=== PATIENT | female | born 1950 | race Caucasian/White ===

== ENCOUNTER → 2016-08-13 | Outpatient (CLI) | payer BC, OTHER ==
[~2016-08-13] MED LIST: ALBU1AER9 INH; ASPI325T4 PO; LACTCHW3 PO; LOSA1TAB PO; LSX20 PO; METO25TA3 PO; POTA-335 PO; RED YEAST RICE PO; RIVA1TAB4 PO
--- NOTE | 2016-08-14 08:27 | MAMMOGRAPHY REPORT ---
BILATERAL DIGITAL SCREENING MAMMOGRAM WITH CAD: 08/13/2016 CLINICAL HISTORY: Routine screening. Patient has no complaints. TECHNIQUE: Bilateral CC and MLO views were obtained. Current study was also evaluated with a Comput er Aided Detection (CAD) system. COMPARISON: Comparison is made to exams dated: 08/10/2015 mammogram, 08/08/2014 mammogram, 08/06/2013 mammogram, 08/05/2011 mammogram, 08/01/2010 mammogram, and 08/05/2012 mammogram - [facility]. BREAST COMPOSITION: There are scattered areas of fibroglandular density in both breasts. FINDINGS: The hub of the Port-A-Cath projects over the right breast, 12:00 and 1:00 axes posteriorly . No new suspicious mass, architectural distortion or cluster of microcalcifications is seen. IMPRESSION: ACR BI-RADS CATEGORY 1: NEGATIVE There is no mammographic evidence of malignancy. A 1 year screening mammogram is recommended. The p atient will receive written notification of the results. Approximately 10% of breast cancers are not detected with mammography. A negative mammographic repor t should not delay biopsy if a clinically suggestive mass is present. Elba Castro M.D. ay/:08/13/2016 16:23:57 Clinical Data Specialist: Lorrie BROWN(Rod)(M), [facility] letter sent: Normal 1/2 BI-RADS Code: ACR BI-RADS Category 1: Negative
== END | disposition home or self-care (01) ==
LOC: C.MAMM 09:10
PROVIDERS: ATTEND Internal Medicine
DX: Z12.31 Encounter for screening mammogram for malignant neoplasm of breast (principal)

== ENCOUNTER → 2017-01-14 | Outpatient (CLI) | payer BC ==
[~2017-01-14] MED LIST changes: +OPTIRAY 320 IV PRN
--- NOTE | 2017-01-14 14:55 | DIAGNOSTIC IMAGING REPORT ---
ABD/PELVIS IV AND ORAL CONT CLINICAL HISTORY: 66 years-old Female presenting with non-Hodgkin's lymphoma. TECHNIQUE: Multidetector CT of the abdomen and pelvis was performed after the administration of oral and intravenous contrast. IV contrast: 119 mL of Optiray 320. A dose lowering technique was used consistent with the principles of ALARA (as low as reasonably achievable). COMPARISON: PET/CT from 05/17/2009 and 04/12/2013. CT DOSE (mGy.cm): The estimated cumulative dose is 2173.29 inclusive of the chest CT.. FINDINGS: [employer] Machine Mechanic topogram: Total left hip arthroplasty. Lung bases: Bilateral pleural thickening and pleural nodularity increased from prior exam in 2012. Mosaic attenuation in the lungs could suggest small airways disease. Mild multichamber enlargement of the heart. Liver: Normal morphology. No liver lesion. Patent hepatic artery and portal veins. Hepatic veins not yet opacified. Biliary: No intrahepatic or extrahepatic biliary ductal dilatation. Gallbladder contains gallstones. Pancreas: Mild parenchymal atrophy. Spleen: Normal. Adrenal glands: Normal. Kidneys and ureters: Simple cysts noted in the lateral aspect of the left upper pole. Bilateral extra renal pelvises. Proximal and mid ureters normal. Evaluation of the distal ureters degraded by the presence of the total left hip arthroplasty with resulting streak artifact. Bladder: Circumferential bladder wall thickening. Pelvic organs: Uterus and ovaries grossly normal allowing for extensive streak artifact. Bowel: Normal appendix. No bowel obstruction. Peritoneal cavity: No free fluid or intraperitoneal gas. Lymph nodes: No enlarged lymph nodes in the abdomen or pelvis. Vasculature: Atherosclerosis of the normal caliber abdominal aorta. IVC not yet opacified. Abdominal wall: Small fat-containing of [place] hernia. Musculoskeletal: No evidence of osseous erosion of the ribs subjacent to the pleural disease. Deformity of the posterior left ninth rib suggest prior fracture. Degenerative changes of the spine noted. Left total hip arthroplasty without hardware complication. IMPRESSION: 1. Interval increase in bilateral soft tissue pleural thickening and nodularity concerning for progression of lymphomatous disease. 2. No lymphadenopathy or evidence of disease in the abdomen and pelvis. Electronically signed by: Beka Kang M.D. 01/14/2017 2:54 PM Dictated Date/Time: 01/14/2017 2:46 PM
--- NOTE | 2017-01-14 14:59 | DIAGNOSTIC IMAGING REPORT ---
CHEST CT WITH CONTRAST CT DOSE: 2173.29 mGy.cm HISTORY: NON HODGKINS LYMPHOMA TECHNIQUE: Multiaxial CT images of the chest were performed following the intravenous administration of contrast. A dose lowering technique was utilized adhering to the principles of ALARA. COMPARISON: Chest CTA 11/23/2007. FINDINGS: No pleural effusions. No pneumothorax. Hyperdense nodular pleural thickening, bilaterally. This is is stable to slightly progressed compared to the prior study. Small focal areas of consolidation with bronchiectasis within the lung apices. This favors fibrotic change. There is also a nonspecific 1.3 cm nodular opacity within the right lung apex on image 61. This may also represent a small focus of fibrotic change but is nonspecific. Mosaic attenuation within the lungs consistent with air trapping. The central airways are patent. Cholelithiasis. Soft tissue prominence within the paratracheal location of the mediastinum. This includes a 1.6 x 1.0 cm right paratracheal lymph node which is increased in size. The main pulmonary artery is dilated up to 4.2 cm. The heart is mildly enlarged. IMPRESSION: 1. Stable to slight progression of the hyperdense nodular areas of pleural thickening, bilaterally. This could represent prior posttreatment changes/pleurodesis. 2. Progressive soft tissue prominence within the paratracheal location of the mediastinum which includes a 1.6 x 1.0 cm right paratracheal lymph node which is increased in size. This is nonspecific but could represent recurrent malignancy or posttreatment changes. [address] follow-up is recommended to ensure stability. 3. A 1.3 cm nodular opacity within the right lung apex which favors fibrotic change. However, this also requires [address] follow-up to ensure stability. Electronically signed by: Louis Claudio M.D. 01/14/2017 2:58 PM Dictated Date/Time: 01/14/2017 2:44 PM
== END | disposition home or self-care (01) ==
LOC: C.CTS 13:49
PROVIDERS: ATTEND Nurse Practitioner Family
DX: C82.11 Follicular lymphoma grade II, lymph nodes of head, face, and neck (principal)

== ENCOUNTER → 2017-08-15 | Outpatient (CLI) | payer BC ==
[~2017-08-15] MED LIST changes: -OPTIRAY 320 IV PRN
--- NOTE | 2017-08-18 14:33 | MAMMOGRAPHY REPORT ---
BILATERAL DIGITAL SCREENING MAMMOGRAM TOMOSYNTHESIS WITH CAD: 08/15/2017 CLINICAL HISTORY: Routine screening. Patient has no complaints. TECHNIQUE: Breast tomosynthesis in addition to standard 2D mammography was performed. Current study was also evaluated with a Computer Aided Detection (CAD) system. COMPARISON: Comparison is made to exams dated: 08/13/2016 mammogram, 08/10/2015 mammogram, 08/08/2014 ma mmogram, 08/06/2013 mammogram, 08/05/2012 mammogram, and 08/05/2011 mammogram - [facility]. BREAST COMPOSITION: There are scattered areas of fibroglandular density in both breasts. FINDINGS: No suspicious masses, calcifications, or areas of architectural distortion are noted in ei ther breast. There has been no significant interval change compared to prior exams. A port catheter again overlies the right 12 to 1:00 breast. Scattered bilateral benign-appearing calcifications are not significantly changed. IMPRESSION: ACR BI-RADS CATEGORY 2: BENIGN There is no mammographic evidence of malignancy. A 1 year screening mammogram is recommended. The pa tient will receive written notification of the results. Approximately 10% of breast cancers are not detected with mammography. A negative mammographic report should not delay biopsy if a clinically suggestive mass is present. Hue Granados M.D. ah/:08/15/2017 14:52:37 Stadium Attendant: Luli BROWN(Rod)(Beth[place])(BD), [facility] letter sent: Normal 1/2 BI-RADS Code: ACR BI-RADS Category 2: Benign
== END | disposition home or self-care (01) ==
LOC: C.MAMM 08:54
PROVIDERS: ATTEND Internal Medicine
DX: Z12.31 Encounter for screening mammogram for malignant neoplasm of breast (principal)

== ENCOUNTER 2024-07-09 08:08 | Observation (INO) ==
--- NOTE | 2024-06-07 11:49 | PAT Medication Instructions ---
Medication Instructions Date of Service June 07, 2024 Home Medications Medication Instructions Recorded albuterol sulfate 2.5 mg/3 mL 2.5 mg (3 mL) continuous 10/28/22 (0.083 %) solution for nebulization nebulization Q4H PRN shortness of breath or wheezing #1 mL albuterol sulfate 90 mcg/actuation 2 puff inhalation Q4 PRN Shortness 10/28/22 aerosol inhaler Of Breath Or Wheezing #2 Inhalers losartan 25 mg tablet (Cozaar) 25 mg PO HS #90 tabs 12/05/23 potassium chloride 20 mEq 20 meq PO PM #90 tabs 12/05/23 tablet,extended release(part/cryst) (Klor-Con M) rivaroxaban 20 mg tablet (Xarelto) 20 mg PO HS #90 tabs 12/05/23 benzonatate 100 mg capsule 100 mg PO BID PRN cough #14 caps 04/15/24 ipratropium bromide 0.02 % 2.5 ml inhalation Q4H PRN 04/21/24 solution for inhalation shortness of breath or wheezing #150 mL alendronate 70 mg tablet (Fosamax) 70 mg PO .q7days 3 months #12 tabs 06/07/24 Medication List: red yeast rice 600 mg capsule 1,200 mg PO BID albuterol sulfate 2.5 mg/3 mL (0.083 %) solution for nebulization 2.5 mg (3 mL) continuous nebulization Q4H PRN shortness of breath or wheezing albuterol sulfate 90 mcg/actuation aerosol inhaler 2 puff inhalation Q4 PRN Shor tness Of Breath Or Wheezing calcium carbonate (Calcium 600) 600 mg PO DAILY cholecalciferol (vitamin D3) 50 mcg (2,000 unit) capsule 50 mcg PO QAM Lactobacillus acidophilus 10 billion cell capsule (Probiotic) 10 mmu cells PO QAM furosemide 20 mg tablet 20 mg PO BID losartan 25 mg tablet (Cozaar) 25 mg PO HS potassium chloride 20 mEq tablet,extended release(part/cryst) (Klor-Con M) 20 meq PO PM rivaroxaban 20 mg tablet (Xarelto) 20 mg PO HS benzonatate 100 mg capsule 100 mg PO BID PRN cough ipratropium bromide 0.02 % solution for inhalation 2.5 ml inhalation Q4H PRN shortness of breath or wheezing vitamin B complex 1 cap PO WK alendronate 70 mg tablet (Fosamax) 70 mg PO .q7days 3 months MEDICATION INSTRUCTIONS: Continue as directed ipratropium bromide 0.02 % solution for inhalation 2.5 ml inhalation Q4H PRN shortness of breath or wheezing albuterol sulfate 2.5 mg/3 mL (0.083 %) solution for nebulization 2.5 mg (3 mL) continuous nebulization Q4H PRN shortness of breath or wheezing albuterol sulfate 90 mcg/actuation aerosol inhaler 2 puff inhalation Q4 PRN Shortness Of Breath Or Wheezing (use if needed; BRING TO HOSPITAL) alendronate 70 mg tablet (Fosamax) 70 mg PO .q7days 3 months ASK your prescriber and surgeon rivaroxaban 20 mg tablet (Xarelto) 20 mg PO HS STOP taking 2 weeks before surgery red yeast rice 600 mg capsule 1,200 mg PO BID DO NOT take the morning of surgery benzonatate 100 mg capsule 100 mg PO BID PRN cough furosemide 20 mg tablet 20 mg PO BID vitamin B complex 1 cap PO WK calcium carbonate (Calcium 600) 600 mg PO DAILY cholecalciferol (vitamin D3) 50 mcg (2,000 unit) capsule 50 mcg PO QAM Lactobacillus acidophilus 10 billion cell capsule (Probiotic) 10 mmu cells PO QAM Take evening before surgery benzonatate 100 mg capsule 100 mg PO BID PRN cough furosemide 20 mg tablet 20 mg PO BID losartan 25 mg tablet (Cozaar) 25 mg PO HS potassium chloride 20 mEq tablet,extended release(part/cryst) (Klor-Con M) 20 meq PO PM Other Notes Remember: NOTHING TO EAT OR DRINK AFTER MIDNIGHT If you have any questions please call us at [phone] or [phone] or [phone] or [phone]
--- NOTE | 2024-06-15 12:16 | Anesthesiology Consultation ---
Date of Service June 15, 2024 Assessment & Plan (1) Encounter for pre-operative examination: Chart Review Chart Review: Acceptable Risk for Surgery (pending cardio clearance, response from PCP and/or heme re: anemia, and routine PCP office visit note if available from 06/07/24 (currently in draft)) and Patient seen in Pre Admission Testing - Discussed case with Dr. Neville- recommends cardiology appt for cardiac optimization prior to surgery- [facility] able to see patient 06/25/24 at 1345 (patient aware and confirmed she can make appt) - Workload message sent to PCP re: anemia (awaiting response) - Please send optimization form to heme/onc as well re: anemia and mildly elevated coags per patient request (Estefani PHOENIX) (CCP at [facility] - fax number [phone]) - Awaiting PCP note from 06/07/24 if available (currently in draft) - Check coags AM DOS (elevated preoperatively- on Xarelto) - Discussed with Dr. Neville- patient is NOT an acceptable OPJ candidate due to PMH- surgeon's office informed. Patient aware Per PAT appt on 06/09/24, no recent illness/disease exposures, illness related symptoms (only chronic allergy/sinus symptoms- chronic and stable), or recent illness/disease positive tests. Will leave to surgeon's discretion if preop Covid testing needed Left shoulder arthroscopy, rotator cuff repair 12/11/23= Done under [facility] with LMA #4 Unique, atraumatic x 1 Last seen by cardio 11/15/23= "Atrial fibrillation: Permanent atrial fibrillation. Bradycardic but asymptomatic. Beta-carol discontinued in the past due to heart rate in the 30s to 40s. Prior TIA on 01/13/14. Continue anticoagulation therapy for stroke risk reduction. She prefers Xarelto, and is tolerating it well. Monitor renal function and CBC while on anticoagulation therapy. Labs regularly followed by heme/Onc.. Chronic heart failure with mid range EF: Stable LV systolic function. NYHA class I/II symptoms. Chronic and stable edema. Continue Lasix 20 mg twice daily with additional 20 mg as needed daily, for weight gain, shortness of breath, or edema. Continue low-sodium diet and daily weights. Monitor renal function and electrolytes periodically. Can consider SGLT2 inhibitor. This was not initiated or discussed at this time given surgery pending soon.. Cardiomyopathy: Etiology uncertain, possibly secondary to prior chemo, but cannot rule out ischemic heart disease or radiation induced coronary disease. Myocardial perfusion study was negative for ischemia. She has declined cardiac catheterization several times in the past. She has stated that she would not be interested in revascularization, such as CABG, if indicated. She did not tolerate ACEI. Continue ARB. Low-dose metoprolol succinate discontinued on 10/28/2022 due to bradycardia (heart rate 30s to 40s). She did not tolerate higher doses of losartan, even b.i.d. dosing. Avoid cardio-toxic chemo agents if able. Other secondary workup has been unremarkable (TSH, ferritin, HIV, Terrence level, SPEP). Stable finding on 2021 echo with mildly to moderately reduced systolic function. Does not qualify for ICD for primary prevention.. Aortic Regurgitation and Mitral Regurgitation: Non severe valvular abnormalities with mild AI on most recent echo on 09/21/2021. Asymptomatic. Monitor periodically. Likely repeat echo 3 to 5 years after most recent echo on 09/21/2021.. Dyslipidemia: Intolerant to prior statin use. Has declined additional statin use. Recommended Zetia or PCSK9 inhibitor given densely calcified coronary arteries and LDL > 70. She has declined Zetia and PCSK9 inhibitor. She takes red yeast rice and with increased dose, LDL has improved. She plans to further adjust dose. Mediterranean diet. Exercise as tolerated. Repeat labs.. Pulmonary hypertension: Moderate based on 2021 echo. Will monitor periodically. May be secondary to XRT. She does not appear to be significantly hypervolemic today.. Disposition: Follow-up in 6 months, or sooner for any other questions or concerns.. She is undergoing left shoulder surgery with Dr. Bowman soon." History Surgery Operation Date: 07/09/24 10:00 Proposed Procedures p Left Reverse Total Shoulder Arthroplasty - Jake Bowman, DO Height/Weight Height: 5 ft 4 in Weight: 61.5 kg Allergies Allergy/AdvReac Type Severity Reaction Status Date / Time ketamine Allergy Severe "Severe" Verified 06/07/24 11:06 hypertensive issues lisinopril Allergy Mild Cough Verified 06/07/24 11:06 povidone Allergy Mild Rash Verified 06/07/24 11:06 povidone-iodine Allergy Mild Rash Verified 06/07/24 11:06 [From Betadine] soap [From Betadine] Allergy Mild Rash Verified 06/07/24 11:06 Medications Home Medications Medication Instructions Recorded Confirmed Last Taken red yeast rice 600 mg capsule 1,200 mg PO BID 10/09/18 06/07/24 12/10/23 12:00 albuterol sulfate 2.5 mg/3 mL 2.5 mg (3 mL) continuous 10/28/22 06/07/24 Unknown (0.083 %) solution for nebulization nebulization Q4H PRN shortness of breath or wheezing #1 mL albuterol sulfate 90 mcg/actuation 2 puff inhalation Q4 PRN Shortness 10/28/22 06/07/24 Unknown aerosol inhaler Of Breath Or Wheezing #2 Inhalers calcium carbonate (Calcium 600) 600 mg PO DAILY 08/20/23 06/07/24 12/09/23 cholecalciferol (vitamin D3) 50 50 mcg PO QAM 08/20/23 06/07/24 12/10/23 12:00 mcg (2,000 unit) capsule Lactobacillus acidophilus 10 10 mmu cells PO QAM 11/11/23 06/07/24 12/10/23 12:00 billion cell capsule (Probiotic) furosemide 20 mg tablet 20 mg PO BID 11/21/23 06/07/24 12/10/23 19:30 losartan 25 mg tablet (Cozaar) 25 mg PO HS #90 tabs 12/05/23 06/07/24 12/10/23 21:30 potassium chloride 20 mEq 20 meq PO PM #90 tabs 12/05/23 06/07/24 12/10/23 21:30 tablet,extended release(part/cryst) (Klor-Con M) rivaroxaban 20 mg tablet (Xarelto) 20 mg PO HS #90 tabs 12/05/23 06/07/24 12/10/23 21:30 benzonatate 100 mg capsule 100 mg PO BID PRN cough #14 caps 04/15/24 06/07/24 Unknown ipratropium bromide 0.02 % 2.5 ml inhalation Q4H PRN 04/21/24 06/07/24 Unknown solution for inhalation shortness of breath or wheezing #150 mL vitamin B complex 1 cap PO WK 06/04/24 06/07/24 Unknown alendronate 70 mg tablet (Fosamax) 70 mg PO .q7days 3 months #12 tabs 06/07/24 06/07/24 Unknown Past Medical History Medical History Asthma breathing stable Atrial fibrillation Dx 2013 Follows with [facility] cardio--on xarelto Bradycardia Asymptomatic per records (beta carol d/c'ed) Cardiomyopathy - Etiology uncertain per cardio records (possibly secondary to chemo but cannot rule out ischemic heart disease or radiation induced coronary disease) - EF 45% since at least 2011 - Negative myocardial perfusion study (2014); patient declines cardiac cath - No ICD needed per 11/2023 cardio visit Degenerative disc disease Dyslipidemia Edema to lower extremities- chronic and stable Heart failure with mid-range ejection fraction 40% per 2021 ECHO History of anesthesia reaction severe hypertension with ketamine Hx of vertigo No current issues, "allergy related" Hx-TIA (transient ischemic attack) (~2015) Non-Hodgkin lymphoma Dx 1996, hx chemo/radiation Remission x several years per patient, no current treatment On anticoagulant therapy Osteoarthritis Osteoporosis Pulmonary hypertension Echo 09/2021: Moderate pulmonary HTN, Estimated RVSP 54mmhg Exercise / Class Metabolic Activity III < 4 Walking/Shop/Light housework (no chest pain or SOB with one flight of stairs- goes very slow- uses cane for ambulation support ) Past Family History Family History Grandmother (Maternal) Diabetes Other No family history of adverse response to anesthesia Past Surgical History Surgical History History of adenoidectomy History of colonoscopy History of esophagogastroduodenoscopy (EGD) History of hip replacement left > subsequent revision History of lung surgery B/L (early )--pleurodesis surgery @ [facility] Dr. Gold History of thoracentesis x14 prior to lung surgery History of tonsillectomy Past Anesthesia History No Hx of Anesthesia Complications (with exception to reaction to ketamine (see allergies)) and No Family Hx of Anesthesia Complications History of PONV No Hx of PONV and No Hx of Motion Sickness Social History Smoking Status: Never smoker Do You Dip or Chew Tobacco: No Hx Alcohol Use: Yes alcohol intake frequency: holidays/special occasions only Hx Substance Use: No substance use type: does not use Review of Systems - Sinus issues x months- post nasal drip and congestion- occasional cough. Feels related to allergies - Sleeps alone - Blood transfusion during chemo () and after lung surgery in early - Platelet transfusion years ago Patient denies chest pain, shortness of breath, dyspnea on exertion, reflux, wheezing, palpitations. No hx of seizures, OK, apnea/snoring. No hx of blood clots Physical Exam Vital Signs VITALS BP 133/78 P 65 TEMP 98.0 SP02 98% RESP 16 Constitutional no acute distress ENMT Mouth: no TMJ clicking Thyromental Distance: > or= 3.5 Finger Breadths (3.5) Mallampati Class: I [place] to side teeth Neck neck extension not limited Respiratory normal respiratory effort; no respiratory distress Auscultation: lungs clear to auscultation bilaterally; no wheezes Cardiovascular Heart Sounds: no murmur Vessels: no carotid bruit Irregularly irregular - rate controlled Musculoskeletal Spine: + kyphosis; no pain with cervical ROM Extremities: extremities normal to inspection Psychiatric Orientation: alert Lab Results Anesthesia Preop Results Results Anesthesia Widget: WBC 3.72 K/ul (4.8-10.8) L 06/15/24 Hgb 10.7 g/dl (12.0-16.0) L 06/15/24 Hct 32.9 % (37.0-47.0) L 06/15/24 Plt 282 K/uL (130-400) 06/15/24 Na 138 mmol/L (136-145) 06/15/24 K 3.9 mmol/L (3.5-5.1) 06/15/24 Cl 100 mmol/L (98-107) 06/15/24 CO2 33 mmol/L (21-32) H 06/15/24 BUN 24 mg/dl (6-23) H 06/15/24 Creat 0.97 mg/dl (0.6-1.2) 06/15/24 Glucose Level 79 mg/dl (70-99(Fasting)) 06/15/24 PT 15.6 Seconds (9.0-12.0) H 06/15/24 PTT 38 Seconds (21-31) H 06/15/24 INR 1.5 (0.9-1.1) H 06/15/24 Blood Type A Positive 06/15/24 Antibody Screen NEGATIVE 06/15/24 Testing Laboratory Results Anemia- new onset- workload note sent to PCP- patient denies signs of bleeding Elevated coags - on Xarelto; also recently increased red yeast rice supplement - will recheck DOS Electrocardiogram Date: 12/05/23 Atrial fibrillation with slow ventricular response at 56bpm. Left axis deviation Minimal voltage criteria for LVH, may be normal variant Septal infarct, age undetermined No significant change from 10/28/22 EKG per cardio Chest X-Ray Date: 04/21/24 FINDINGS: Stable right portacatheter. Cardiomegaly is noted. The aortic arch is calcified. Interstitial thickening is seen most prominently in the right peripheral lung. No evidence of pleural effusion or pneumothorax. IMPRESSION: Chronic findings as above without evidence of pneumonia. Echocardiogram Date: 09/21/21 Estimated EF 40%. Akinesis of the basal inferior wall. Otherwise, global HK. No LVH. Mild RAD. Mild AR. Moderate pulmonary HTN. RVSP 54mmhg. Other Testing Soft neck CT 03/09/24= Few small [post?treatment regressed] subcutaneous lymph nodes in the anterior and right lateral aspect of the neck just above the clinical cartilage [at the level of subepiglottic region]. Marked right apical pleural thickening with upper zone fibrosis/cystic changes. Bilateral mosaic attenuation in the visualized upper lung. Suggest clinical correlation. Diffuse atherosclerotic changes noted along both common carotid arteries more on the right side with multiple mixed calcified and soft plaques causing non significant stenosis along its course, CT angiography is advised for better evaluate. 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 Occasional PVCs with ventricular triplet. Longest pause was 3.4 seconds. Slowest HR occurred during typical sleeping hours. There no reported symptoms.
[~2024-07-09 08:08] MED LIST changes: -ALBU1AER9 INH; -ASPI325T4 PO; +BUPIVACAINE 0.5 % 5 MG/1 ML PF 10ML VIAL ONE; -LACTCHW3 PO; -LOSA1TAB PO; -LSX20 PO; -METO25TA3 PO; -POTA-335 PO; -RED YEAST RICE PO; -RIVA1TAB4 PO
[2024-07-09] MEDS ORDERED: MIDAZOLAM HCL 1 MG/ML 2ML VIAL ONE (08:58)
[2024-07-09] MEDS ORDERED: fentaNYL citrate PF 100 MCG/2 ML VIAL ONE (08:59)
[2024-07-09] MEDS ORDERED: PROPOFOL IV EMULSION 10 MG/ML 20 ML VIAL IV ONE (09:01)
[2024-07-09] MEDS ORDERED: LIDOCAINE 2% 2 ML VIAL/AMP(20MG/ML) INFIL ONE (09:01)
[2024-07-09] MEDS ORDERED: PHENYLEPHRINE HCL 10 MG/ML VIAL ONE (09:02)
[2024-07-09] MEDS: ACETAMINOPHEN 500 MG TAB PO SCH ×2 (09:04→14:42)
--- NOTE | 2024-07-09 09:04 | History & Physical Bridge Note ---
Date of Service July 09, 2024 History & Physical Bridge Note I have examined the patient, reviewed the History & Physical and in the interval since the performance of the History & Physical I have noted the following changes of clinical significance: no changes noted
[2024-07-09] MEDS: FAMOTIDINE 20 MG TAB PO SCH (09:05)
[2024-07-09] MEDS ORDERED: fentaNYL citrate PF 100 MCG/2 ML VIAL IV PRN (09:06)
[2024-07-09] MEDS ORDERED: ePHEDrine sulfate 50 MG/ML AMP IV PRN (09:06)
[2024-07-09] MEDS ORDERED: HYDROmorphone INJ 1 MG/ML SYRINGE IV PRN (09:06)
[2024-07-09] MEDS ORDERED: ATROPINE SULFATE 0.1 MG/ML 10ML SYR IV PRN (09:06)
[2024-07-09] MEDS: GABAPENTIN 300 MG CAP PO SCH (09:06)
[2024-07-09] MEDS ORDERED: ONDANSETRON INJ 2 MG/ML 2 ML VIAL IV PRN ×2 (09:06→12:48)
[2024-07-09] MEDS: dexAMETHasone**PF** 10 MG/ML VIAL IV SCH (09:17)
[2024-07-09] MEDS: LR 15ML/HR IV SCH (09:17)
[2024-07-09 09:20] LABS: INR 1.1 (0.9-1.1); Partial Thromboplastin Ratio 1.1; Partial Thromboplastin Time 29 Seconds (21-31); Prothrombin Time 11.8 Seconds (9.0-12.0)
[2024-07-09] MEDS: TRANEXAMIC ACID 1,000 MG **IV Pre-op IV SCH (09:48)
[2024-07-09] MEDS: ceFAZolin 2000MG 2,000 MG/15 ML SYR IV SCH (10:15)
[2024-07-09] MEDS: LR 60ML/HR IV SCH (10:17)
[2024-07-09] MEDS: ORTHO JOINT ANESTHETIC ONE (10:45)
[2024-07-09] MEDS ORDERED: GLYCOPYRROLATE 0.2 MG/ML VIAL ONE (10:47)
[2024-07-09] MEDS ORDERED: ePHEDrine sulfate 50 MG/5 ML SYR ONE (10:52)
[2024-07-09] MEDS ORDERED: DEXAMETHASONE SOD INJ 4 MG/ML VIAL ONE (10:53)
[2024-07-09] MEDS ORDERED: ONDANSETRON INJ 2 MG/ML 2 ML VIAL ONE (10:53)
[2024-07-09] MEDS: ROPIV 0.5% 246mg, Ketorolac 30mg, EPINEPHrine 0.5mg in NSS INFIL SCH (11:00)
[2024-07-09] MEDS: TRANEXAMIC ACID 1,000 MG **IV Intra-op IV SCH (11:05)
--- NOTE | 2024-07-09 11:09 | Operative Report ---
PG Post Operative Report Pre & Post Diagnosis Operation Date: 07/09/24 10:00 Pre-Op Diagnosis: Avascular necrosis and rotator cuff tear of the left shoulder Post-Op Diagnosis: Avascular necrosis and rotator cuff tear of the left shoulder I identified the patient and participated in the time-out.: Yes Procedure Operation Date: 07/09/24 10:00 Actual Procedures p Left Reverse Total Shoulder Arthroplasty(Left) - Jake Bowman DO Surgeon Jake Bowman DO Barrel Planer Dionicio Bond PA-C Estimated Blood Loss 100 Findings Consistent with Post-Op Diagnosis Specimens Left humeral head Description of Procedure Implants used: I used a [employer] Comprehensive reverse total shoulder arthroplasty system with a size 6 press fit micro humeral stem, a +6 offset humeral tray and a standard humeral bearing, a 25 mm baseplate with a 6.5 mm central screw and superior and inferior locking screws, and a size 36 mm eccentric glenosphere. Marley arrived at [facility] for the above procedure. She was seen in the preoperative holding area and the operative extremity was identified and signed. She was given a preoperative antibiotic, TXA, and an interscalene nerve block. She was taken back to the operating room, laid on table in supine position, and put under general anesthesia. She was then put into the beachchair position. The shoulder was then prepped and draped in sterile fashion. A timeout was done and the patient and the operative extremity was properly identified. A deltopectoral approach was used. Dissection was taken down through the fascia and the deltoid was retracted laterally and the conjoined tendon was retracted medially. The anterior shoulder was exposed. The biceps tendon was tenodesed from previous procedure The subscapularis was then directly released off the lesser tuberosity with a peel technique. The inferior capsule was released and the humeral head was dislocated. A canal finding reamer was sent down the center of the humeral canal. Sequential reaming up to a size 6 reamer was done. Off that reamer, a proximal humeral resection guide was placed. The proximal humerus was resected at 135 of inclination and 25 of retroversion. Osteophytes were then removed and the glenoid was exposed. Time was spent doing a complete capsular and labral release. The glenoid guide was then placed in the inferior aspect of the glenoid. A 3.2 mm Steinmann pin was then placed into the glenoid vault at 10 of inclination. The glenoid baseplate was then reamed. The final size 25 mm baseplate was then impacted in the place. A 6.5 mm central screw was then placed followed by superior and inferior locking screws. A 36 mm eccentric glenosphere was then impacted into place. Surrounding soft tissues were then injected with 100 cc an orthopedic pain control cocktail. The proximal humerus was then exposed. Sequential broaching of the humerus up to a size 6 broach was done. Off that broach a +6 offset humeral tray was trialed. The shoulder was then reduced, brought through a full range of motion, and felt to be stable. The shoulder was then dislocated and the broach was removed. The final size 6 micro press-fit humeral stem was then impacted into place. A standard humeral bearing was then snapped onto a +6 offset humeral tray. The humeral tray was then impacted onto the humeral stem. The shoulder was once again reduced, brought through a full range of motion, and felt to be stable. Subscapularis was retracted and unable to be repaired. A dilute betadyne lavage was then done for 3 minutes. The joint was then irrigated with normal saline solution. Hemostasis was obtained. The interval was closed with 2-0 Vicryl suture. The skin was then closed with 2-0 Vicryl and josr. A Silverlon dressing was placed and the arm was rested in a regular arm sling. She was then extubated and transferred to a hospital bed. She taken to the postanesthesia care unit in stable condition. She tolerated the procedure well. Dionicio Bond PA-C, was present for the entire procedure. He was critical for patient positioning, prepping, draping, retraction exposure, wound closure and application of sterile dressing. I attest to the content of the Intraoperative Record and any orders documented therein. Any exceptions are noted below.
--- NOTE | 2024-07-09 12:07 | XRay Report ---
XR shoulder LT min 2V routine CLINICAL HISTORY: Post shoulder surgery COMPARISON: None FINDINGS: Left shoulder prosthesis. No hardware complication. There is expected soft tissue gas. Ski n josr are present. IMPRESSION: Unremarkable postoperative exam. ACT 112: Negative or not required by law. Electronically signed by: Hilario Adrian M.D. 07/09/2024 12:05 PM
[2024-07-09] MEDS ORDERED: traMADol HCL 50 MG TABLET PO PRN (12:48)
[2024-07-09] MEDS ORDERED: bisacodyL 10 MG SUPP PR PRN (12:48)
[2024-07-09] MEDS ORDERED: HYDROmorphone INJ 0.5 MG/0.5 ML SYR IV PRN (12:48)
[2024-07-09] MEDS ORDERED: MAGNESIUM HYDROXIDE SUSP 30 ML UDC PO PRN (12:48)
[2024-07-09] MEDS ORDERED: IPRATROPIUM BROMIDE NEB SOLN 0.02% 0.5MG/2.5ML VIAL INH PRN (12:48)
[2024-07-09] MEDS ORDERED: ALBUTEROL HFA 8 GM INHALER INH PRN (12:48)
[2024-07-09] MEDS ORDERED: NALOXONE HCL 0.4 MG/1 ML VIAL/CARP IV PRN (12:48)
[2024-07-09] MEDS ORDERED: METOCLOPRAMIDE HCL INJ 5 MG/ML 2 ML VIAL IV PRN (12:48)
[2024-07-09] MEDS ORDERED: ALBUTEROL 0.083% NEBU SOLN 3 ML VIAL NEB PRN (12:48)
[2024-07-09] MEDS: BUPIVACAINE LIPOSOME 1.3% 133 MG/10 ML VIAL ONE (13:05)
--- NOTE | 2024-07-09 13:05 | Anesthesiology Progress Note ---
Date of Service July 09, 2024 Anesthesia Post Procedure Vital Signs Vital Signs: Temp Pulse Pulse Resp BP Pulse Ox O2 Del Method 07/09/24 12:30 87 20 116/77 94 Nasal Cannula 07/09/24 12:20 81 17 126/72 98 Nasal Cannula 07/09/24 12:10 36.2 C L 72 24 129/70 97 Nasal Cannula 07/09/24 12:00 90 22 132/68 95 Nasal Cannula 07/09/24 11:50 86 24 114/86 92 Nasal Cannula 07/09/24 11:40 103 H 18 104/74 99 Oxymask 07/09/24 11:32 36.0 C L 98 H 20 102/70 97 Oxymask 07/09/24 08:46 36.5 C 64 20 126/67 94 Room Air O2 Flow Rate 07/09/24 12:30 2 07/09/24 12:20 2 07/09/24 12:10 2 07/09/24 12:00 2 07/09/24 11:50 2 07/09/24 11:40 6 07/09/24 11:32 6 07/09/24 08:46 Transfer of Care Handoff Completed per policy Notes Mental Status: alert / awake / arousable and participated in evaluation Patient Amnestic to Procedure: Yes Nausea / Vomiting: improving with treatment Pain: adequately controlled and improving with treatment Airway Patency, RR, SpO2: stable & adequate BP & HR: stable & adequate Hydration State: stable & adequate Anesthetic Complications: no major complications apparent and Pt Satisfied with anesthetic care Notes: Pt interscalene block is functioning well. Arm in sling
[2024-07-09] MEDS: ceFAZolin 1000MG 1,000 MG/7.5 ML SYR IV SCH (18:04)
[2024-07-09] MEDS: SENNA 8.6 MG TAB PO SCH (21:35)
[2024-07-09] MEDS: DOCUSATE SODIUM 100 MG CAP PO SCH (21:35)
[2024-07-09] MEDS: POTASSIUM CHLORIDE CRTAB 20 MEQ TABCR PO SCH (21:35)
[2024-07-09] MEDS: LOSARTAN POTASSIUM 25 MG TAB PO SCH (21:36)
[2024-07-09] MEDS: FUROSEMIDE 20 MG TAB PO SCH (21:36)
--- NOTE | 2024-07-10 07:56 | Orthopedic Progress Note ---
Date of Service July 10, 2024 Assessment & Plan (1) Status post reverse total replacement of left shoulder: Overall she is doing very well. She is not having much pain in the left shoulder. She will be seen by physical therapy today for ambulation and range of motion exercises. She is on 1 L of oxygen but she is able to take a deep breath. Will see how she does when she is weaned off the oxygen. As long as her saturations remained above 92%, she can be discharged to home. She will follow-up with orthopedics in 2 weeks. Bev Roach was seen and examined at bedside this morning. Overall she is doing very well. She is not having much pain in the left shoulder. She has no complaints.. Review of Systems All systems reviewed & are unremarkable except as noted in HPI & below. Physical Exam On physical exam of her left shoulder, the dressing is clean and dry. The nerve block is still in effect. She is wearing her sling as instructed.. Results & Data Results & Data Laboratory Results . Diagnostic Findings Postoperative x-rays of the left shoulder show the prosthesis to be in anatomic alignment without any evidence of fracture complication, or loosening.. PG Care Time/CCT Total # of Minutes Spent Total Time Spent with Patient: Total time spent is greater than 50% in coordination of care (as documented) at patient's floor/unit and/or counseling patient: Coding Level of Care Code 82601 Post Operative Follow-Up Diagnoses Status post reverse total replacement of left shoulder Z96.612
--- NOTE | 2024-07-10 07:57 | Discharge Summary ---
Date of Service July 10, 2024 Principal Diagnosis Same as "Discharge Diagnosis" noted below under Discharge Instructions. Discharge Exam On physical exam of her left shoulder, the dressing is clean and dry. The nerve block is still in effect. She is wearing her sling as instructed.. Discharge Data Procedures Performed Operation Date: 07/09/24 10:00 Actual Procedures p Left Reverse Total Shoulder Arthroplasty(Left) - Jake Bowman DO Ordered Studies 07/09/24 05:00 US - OR guided needle placemen Routine Hospital Course (1) Status post reverse total replacement of left shoulder: On July 09, 2024 Luz arrived at [facility] and underwent a left reverse shoulder replacement without complication. She had a general anesthetic and a left interscalene nerve block. Postoperatively, she was placed in a sling and transferred to the general orthopedic floors. Her hospital course is uneventful. On postop day #1, her vital signs were stable and her pain was well-controlled. She was weaned off to 1 L of oxygen. She was seen by physical therapy for ambulation and range of motion exercises. She was then discharged to home. She will follow-up with orthopedics in 2 weeks. PG Care Time/CCT Total # of Minutes Spent Total Time Spent with Patient: Total time spent is greater than 50% in coordination of care (as documented) at patient's floor/unit and/or counseling patient: Discharge Plan Discharge Items Patient Disposition: Home - Self-Care Reason For Visit: Left Shoulder Arthritis Discharge Diagnosis: Left reverse shoulder replacement Activity: Per Instructions section Non-emergency contact: Surgeon Call non-emergency contact if: your wound has increased redness and your wound has increased drainage Follow-up/Referrals: Amanda Garza MD [Primary Care Provider] - Diet: Regular Addtl Attending Provider Instructions: Activity and Therapy Recommendations: * If you are using [facility] then therapy will be provided at your home until they feel you have accomplished all of your goals. * If you are using [facility] then Physical Therapy will be provided until they feel you are ready to start Outpatient Physical Therapy. * If you are not using home therapy then Outpatient Physical Therapy should start about 3-5 days from your day of surgery. Therapy will last about 8-12 weeks * Wear your sling for 3 weeks, unless otherwise instructed. You may remove your sling to shower and to dress, but otherwise, you should be in your sling at all times, including while sleeping * The shoulder replacement is very stable and you can use your hand while in the sling * You were shown a series of exercises in the hospital. Do these exercises daily including the exercises you were shown in physical therapy. Medications: * Narcotic You will likely be sent home from the hospital with a prescription for the narcotic pain medication that worked best throughout your stay. * Cefadroxil -take the antibiotic twice a day for 10 days to help prevent infection. * Other medications may be prescribed for specific circumstances. If you have any questions, please call the office at . * Resume previous home medications unless otherwise instructed Dressing Care: Leave the Silverlon dressing in place for 7 days. After 7 days you may remove the dressing. If the incision is not draining then you may leave the josr open to air. If there is a little bit of drainage or if the josr are getting stuck on your clothing then cover the incision with a dry dressing. The josr will be removed at your 2 week follow-up appointment. Showering: You may shower with the Silverlon dressing in place. Do not let the shower spray hit the dressing directly. Pat the Silverlon dressing dry. If the dressing becomes wet underneath, then simply remove the dressing. Keep the incision dry until you are 7 days out from the day of surgery. After 7 days you may remove the Silverlon dressing and shower with the josr exposed. Let soapy water run over the josr and pat them dry. Do not scrub or soak the incision. Diet: You may resume your previous diet. Things To Watch For: * Drainage from the incision site that occurs more than one week after your surgery. * Increased redness at the incision site. * Fever above 102 degrees Fahrenheit. * Unusual chest pain or shortness of breath. * Call [facility] at with any of the above problems Follow-Up Visit: Follow-up with Dr. Bowman's office 2-3 weeks after your day of surgery. We will remove your josr and answer any questions. If you have any additional questions or concerns, Dr Bowman is usually in the office at the same time and will be available An appointment was probably scheduled when you signed-up for surgery in the office. If you have any questions call More detailed instructions as well as Frequently Asked Questions were provided in a folder by our office when you signed-up for surgery. Please review these instructions when you get home. If you have any further questions or concerns, please feel free to call the office at [phone] Pending Studies at Discharge: No Stand-Alone Forms: [facility], Smoking Cessation Medications and DC Order Prescriptions: New cefadroxil 500 mg capsule 500 mg PO BID 10 Days Qty: 20 0RF oxycodone 5 mg tablet 5 mg PO Q6H PRN (Reason: pain) Qty: 30 0RF Continued albuterol sulfate 90 mcg/actuation HFA aerosol inhaler 2 puff INHALATION Q4 PRN (Reason: Shortness Of Breath Or Wheezing) Qty: 2 3RF albuterol sulfate 2.5 mg /3 mL (0.083 %) solution for nebulization 2.5 mg continuous nebulization Q4H PRN (Reason: shortness of breath or wheezing) Qty: 1 5RF alendronate [Fosamax] 70 mg tablet 70 mg PO .q7days 90 Days Qty: 12 4RF Rx Instructions: Take 1 tab once weekly with 8 oz. plain water; wait 45 minutes before eating/drinking anything else. ipratropium bromide 0.02 % solution 2.5 ml INH Q4H PRN (Reason: shortness of breath or wheezing) Qty: 150 0RF calcium carbonate [Calcium 600] 600 mg calcium (1,500 mg) tablet 600 mg PO DAILY cholecalciferol (vitamin D3) 50 mcg (2,000 unit) capsule 50 mcg PO QAM potassium chloride [Klor-Con M20] 20 mEq tablet,ER particles/crystals 20 meq PO PM Qty: 90 3RF Xarelto 20 mg tablet 20 mg PO HS Qty: 90 3RF losartan [Cozaar] 25 mg tablet 25 mg PO HS Qty: 90 3RF red yeast rice 600 mg Capsule 1,200 mg PO BID Probiotic 10 billion cell Capsule 10 mmu cells PO QAM vitamin B complex Capsule 1 cap PO WK furosemide 20 mg tablet 20 mg PO BID Rx Instructions: 20 mg PO take 1 tablet twice daily, Can take an additional 20mg once daily as needed for swelling, shortness of breath or weight gain.; Discharge Orders: Discharge Order (Routine); Ordered 07/10/24 Ordered By: Jake Bowman Admission Data Admit Date/Time: 07/09/24 11:40 Attending Provider: Jake Bowman Admit Provider: Jake Bowman Primary Care Provider: Amanda Garza
[2024-07-10] MEDS: dexAMETHasone 4 MG TAB PO SCH (09:39)
[2024-07-10] MEDS: CALCIUM CARBONATE 1250MG TAB PO SCH (09:39)
[2024-07-10] MEDS: CHOLECALCIFEROL 25 MCG (1000 UNITS) TAB PO SCH (09:40)
[2024-07-10] MEDS: MULTIVITAMIN TAB PO SCH (09:41)
[2024-07-10] MEDS: ADVANCED PROBIOTIC 625 MG CAPSULE PO SCH (09:41)
[2024-07-10] MEDS: RIVAROXABAN 10 MG TABLET PO SCH (09:42)
[2024-07-10 11:31] VITALS: RESP 18
[2024-07-10 11:39] VITALS: BP 123/59; PULSE 61; TEMP 97.5
[2024-07-10 15:35] VITALS: O2SAT 89
[2024-07-13] MEDS ORDERED: VITAMIN B COMPLEX TAB PO SCH (09:00)
== END 2024-07-10 12:15 | disposition home or self-care (01) ==
LOC: 2S 08:08 → ASU 08:08